=== PATIENT | female | born 1975 | race Caucasian/White ===

== ENCOUNTER 2020-08-29 13:07 | Emergency (ER) | payer OTHER ==
[2020-08-29] MEDS ORDERED: CEPHALEXIN500 MG PO (13:44)
== END 2020-08-29 14:09 | disposition home or self-care (01) ==
LOC: FER 13:07
DX: S61.412A Laceration without foreign body of left hand, initial encounter (principal); Z23 Encounter for immunization; W26.0XXA Contact with knife, initial encounter; Y92.009 Unspecified place in unspecified non-institutional (private) residence as the place of occurrence of the external cause
CPT/HCPCS: 90471; 90715